=== PATIENT | female | born 1965 ===

== ENCOUNTER 2016-08-24 16:04 | Emergency (ER) | payer SELFPAY ==
[2016-08-26 18:30] LABS: HEMOGLOBIN 12.2 g/dL (12.0-16.0); MEAN CELL VOLUME 86.9 fl (81.0-99.0); MEAN CORPUSCULAR HEMOGLOBIN 28.4 pg (27.0-31.0); MEAN CORPUSCULAR HGB CONC 32.6 g/dL (33.0-37.0); RBC 4.3 Mil/uL (3.80-5.20); RED CELL DISTRIBUTION WIDTH 12.7 % (11.5-14.5); WHITE BLOOD COUNT 14.2 K/uL (4.8-10.8)
[2016-08-26 18:33] LABS: URINE BILIRUBIN NEGATIVE (NEGATIVE); URINE CLARITY SLIGHT-CLOUDY (Clear); URINE COLOR DARK YELLOW (YELLOW); URINE GLUCOSE (UA) NEGATIVE (Normal)
[2016-08-26 18:34] LABS: PH,URINE 6.5 (5.0-8.0); URINE BLOOD TRACE-INTACT (NEGATIVE); URINE NITRATE POSITIVE (NEGATIVE); URINE PROTEIN >=300 mg/dL (NEGATIVE)
[2016-08-26 18:35] LABS: SQUAMOUS EPITHIAL 12 /hpf (0-5); URINE AMORPHOUS SEDIMENT SMALL /ul (<OCC); URINE BACTERIA MOD (<OCC); URINE LEUKOCYTE ESTERASE SMALL Leu/uL (Negative)
[2016-08-27 01:12] LABS: ALBUMIN 4.3 g/dL (3.5-5.0); BLOOD UREA NITROGEN 8 mg/dl (7-17); CALCIUM 9.3 mg/dL (8.4-10.2); GFR AFRICAN-AMERICAN > 60; GFR NON-AFRICAN AMERICAN > 60
[2016-08-27 01:14] LABS: ALT/SGPT 25 U/L (9-52); AST/SGOT 29 U/L (14-36)
== END 2016-08-24 21:06 | disposition home or self-care (01) ==
LOC: H.ER 16:04 → EDBD 21:20 → H.ER 23:00
DX: N12 Tubulo-interstitial nephritis, not specified as acute or chronic (principal)